=== PATIENT | male | born 2000 | race Asian ===

== ENCOUNTER 2023-06-07 04:27 | Day surgery (SDC) | payer OTHER ==
[2023-06-03 14:47] VITALS: BMI 19.3
[2023-06-07] MEDS ORDERED: ROPIVACAINE HCL 0.5% 30ML VIAL ONE (07:13)
[2023-06-07] MEDS ORDERED: DEXAMETHASONE SOD PHOSPHATE 10 MG/1 ML VIAL ONE (07:13)
[2023-06-07] MEDS ORDERED: FENTANYL CITRATE/PF 50 MCG/ML VIAL ONE (07:16)
[2023-06-07] MEDS ORDERED: PROPOFOL 20 ML ONE ×2 (07:17→08:41)
[2023-06-07] MEDS ORDERED: MIDAZOLAM HCL 2 MG/2 ML SINGLE DOSE VIAL ONE ×2 (07:17→08:39)
[2023-06-07] MEDS ORDERED: ceFAZolin 2 GRAM PREMIX BAG IVPB ONE (08:48)
[2023-06-07] MEDS ORDERED: ONDANSETRON 4 MG/2 ML VIAL ONE (10:57)
[2023-06-07] MEDS ORDERED: ceFAZolin SODIUM 1 GM VIAL ONE (10:57)
[2023-06-07] MEDS ORDERED: ONDANSETRON 4 MG/2 ML VIAL IVPUSH PRN (11:04)
[2023-06-07] MEDS ORDERED: LACTATED RINGERS SOLUTION 1,000 ML IV SCH (11:15)
[2023-06-07 12:56] VITALS: BP 112/61; PULSE 61; RESP 20; TEMP 97.3
== END 2023-06-07 13:00 | disposition home or self-care (01) ==
LOC: JASU-SURG 04:27
PROVIDERS: ATTEND Orthopaedic Surgery
PROC: 0RNJ4ZZ Release Right Shoulder Joint, Percutaneous Endoscopic Approach (ICD-10-PCS; principal; 2023-06-07 08:00)
DX: M75.41 Impingement syndrome of right shoulder (principal)
CPT/HCPCS: 94760; J1100